=== PATIENT | male | born 1965 | race Caucasian/White ===

== ENCOUNTER 2016-09-21 01:10 | Emergency (ER) | payer SELFPAY ==
[~2016-09-21] VITALS: Ht 177.8 cm; Wt 74.8 kg
[2016-09-21 01:17] VITALS: BP 132/74
--- NOTE | 2016-09-21 01:58 | NUR ---
AMBULATED TO ER OF2
[2016-09-21] MEDS ORDERED: oxyCODONE/APAP 5/325 MG 1 TAB TAB PO ONE (02:45)
--- NOTE | 2016-09-21 02:45 | NUR ---
Patient being evaluated by DR. RUBIO at bedside.
--- NOTE | 2016-09-21 03:15 | NUR ---
Patient discharged with v/s stable. Written and verbal after care instructions given and explained. Patient alert, oriented and verbalized understanding of instructions. Ambulatory with steady gait. All questions addressed prior to discharge. ID band removed. Patient advised to follow up with PMD. Rx of MOTRIN 800 MG, NORCO 10/325 MG given. Patient educated on indication of medication including possible reaction and side effects. Opportunity to ask questions provided and answered.
[2016-09-21 03:20] VITALS: BP 122/70
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
== END 2016-09-21 03:15 | disposition home or self-care (01) ==
LOC: MED 01:10
DX: S62.396D Other fracture of fifth metacarpal bone, right hand, subsequent encounter for fracture with routine healing (principal); F17.210 Nicotine dependence, cigarettes, uncomplicated; Z88.5 Allergy status to narcotic agent; W19.XXXD Unspecified fall, subsequent encounter
CPT/HCPCS: 73130; 99284

== ENCOUNTER 2016-10-05 13:05 | Emergency (ER) | payer MEDICAID, OTHER ==
[~2016-10-05] VITALS: Ht 177.8 cm; Wt 72.8 kg
[2016-10-05 13:24] VITALS: BP 107/71
--- NOTE | 2016-10-05 13:43 | NUR ---
PATIENT AMBULATED TO BED 4
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
--- NOTE | 2016-10-05 13:52 | NUR ---
NOEMI CLARK AT BEDSIDE.
[2016-10-05] MEDS ORDERED: HYDROcodone/APAP 5/325 MG 1 TAB TAB PO ONE (14:00)
[2016-10-05] MEDS ORDERED: KETOROLAC 30 MG/ML VIAL IM ONE (14:00)
--- NOTE | 2016-10-05 14:04 | NUR ---
XRAY AT BEDSIDE.
[2016-10-05 14:38] VITALS: BP 125/80
--- NOTE | 2016-10-05 14:38 | NUR ---
Patient discharged with v/s stable. Written and verbal after care instructions given and explained. Patient alert, oriented and verbalized understanding of instructions. Ambulatory with steady gait. All questions addressed prior to discharge. ID band removed. Patient advised to follow up with PMD. Rx of NAPROSYN, KEFLEX AND NORCO given. Patient educated on indication of medication including possible reaction and side effects. Opportunity to ask questions provided and answered.
== END 2016-10-05 14:38 | disposition home or self-care (01) ==
LOC: MED 13:05
DX: S62.396A Other fracture of fifth metacarpal bone, right hand, initial encounter for closed fracture (principal); M79.671 Pain in right foot; L03.115 Cellulitis of right lower limb; F17.210 Nicotine dependence, cigarettes, uncomplicated; X58.XXXA Exposure to other specified factors, initial encounter; Y93.89 Activity, other specified; Y92.89 Other specified places as the place of occurrence of the external cause; Y99.8 Other external cause status
CPT/HCPCS: 29125; 73120; 73630; 96372; 99284; J1885; Q0092

== ENCOUNTER 2016-10-22 03:25 | Emergency (ER) | payer MEDICAID ==
[~2016-10-22] VITALS: Ht 177.8 cm; Wt 74.8 kg
[2016-10-22 03:45] VITALS: BP 123/60
--- NOTE | 2016-10-22 03:55 | NUR ---
Patient to bed 08.
--- NOTE | 2016-10-22 04:20 | NUR ---
AT BEDSIDE EVALUATING PT.
--- NOTE | 2016-10-22 04:27 | NUR ---
NEW SPLINT APPLIED TO THE RIGHT HAND/FOREARM.
[2016-10-22 05:01] VITALS: BP 117/61
--- NOTE | 2016-10-22 05:01 | NUR ---
Patient discharged with v/s stable. Written and verbal after care instructions given and explained. Patient verbalized understanding. Ambulatory with steady gait. All questions addressed prior to discharge. Advised to follow up with PMD.
== END 2016-10-22 05:01 | disposition home or self-care (01) ==
LOC: MED 03:25
DX: S62.396A Other fracture of fifth metacarpal bone, right hand, initial encounter for closed fracture (principal); R03.0 Elevated blood-pressure reading, without diagnosis of hypertension; Z88.8 Allergy status to other drugs, medicaments and biological substances; W22.8XXA Striking against or struck by other objects, initial encounter; Y93.89 Activity, other specified; Y92.89 Other specified places as the place of occurrence of the external cause; Y99.8 Other external cause status
CPT/HCPCS: 99283

== ENCOUNTER 2017-02-19 11:44 | Emergency (ER) | payer SELFPAY ==
[~2017-02-19] VITALS: Ht 177.8 cm; Wt 73.9 kg
[2017-02-19 11:46] VITALS: BP 138/87
--- NOTE | 2017-02-19 11:52 | NUR ---
PT TRIAGED. WAITING FOR ER BED. ERMD NOTIFIED OF PATIENT STATUS.
--- NOTE | 2017-02-19 12:07 | NUR ---
BODYACHES, F/C, CONGESTION PATIENT PRESENTS TO ED WITH DRY COUGH 2 WKS AND STABBING PAIN TO LEFT EAR X YESTERDAY---NO EXUDATE OR INJURY PER PT . PT STATES . DENIES N/V/D; SKIN IS PINK/WARM/DRY; AAOX4 WITH EVEN AND STEADY GAIT; LUNGS CLEAR BL; HR EVEN AND REGULAR; PATIENT STATES PAIN OF 9/10 AT THIS TIME; VSS; PATIENT POSITIONED FOR COMFORT; HOB ELEVATED; BEDRAILS UP X2; BED DOWN. ER MD MADE AWARE OF PT STATUS.
[2017-02-19 12:59] VITALS: BP 138/87
--- NOTE | 2017-02-19 12:59 | NUR ---
Patient discharged with v/s stable. Written and verbal after care instructions given and explained. Patient alert, oriented and verbalized understanding of instructions. Ambulatory with to car. All questions addressed prior to discharge. ID band removed. Patient advised to follow up with PMD. Rx of PHENERGAN DM/ Z PACK given. Patient educated on indication of medication including possible reaction and side effects. Opportunity to ask questions provided and answered.
[2017-02-19] MEDS ORDERED: KETOROLAC 60 MG/2 ML VIAL IM ONE (13:05)
== END 2017-02-19 12:59 | disposition home or self-care (01) ==
LOC: MED 11:44
DX: J02.9 Acute pharyngitis, unspecified (principal); Z88.8 Allergy status to other drugs, medicaments and biological substances
CPT/HCPCS: 96372; 99283; J1885

== ENCOUNTER 2017-06-01 02:40 | Emergency (ER) | payer MEDICAID, OTHER ==
[~2017-06-01] VITALS: Ht 177.8 cm; Wt 68.0 kg
[2017-06-01 02:51] VITALS: BP 109/72
[2017-06-01 02:55] VITALS: BP 109/72
--- NOTE | 2017-06-01 02:55 | NUR ---
PT TAKEN TO CHAIR B
--- NOTE | 2017-06-01 02:59 | NUR ---
Pt presents to ED with c/o left ear pain 09/07 x1 wk. Pt states no dizzines but has decrease in hearing and feels pressure in left hear. Pt states no n/v. VSS. ER MD at chairside evaluating. Continue to monitor.
--- NOTE | 2017-06-01 02:59 | NUR ---
Dr. Sawyer evaluating patient.
--- NOTE | 2017-06-01 03:19 | NUR ---
Siva pruitt in [facility] - 06/01/17 at 0326 by MELLY PT MOVED TO BED 10
[2017-06-01] MEDS ORDERED: IBUPROFEN 800 MG TAB PO ONE (03:25)
[2017-06-01 03:44] LABS: APPEARANCE,URINE CLEAR (CLEAR); BILIRUBIN,URINE NEGATIVE (NEGATIVE); BLOOD, URINE NEGATIVE (NEGATIVE); COLOR,URINE YELLOW (YELLOW); LEUKOCYTE ESTERASE ,URINE NEGATIVE (NEGATIVE); NITRITE, URINE NEGATIVE (NEGATIVE); UGLUCOSE NEGATIVE (NEGATIVE)
--- NOTE | 2017-06-01 04:38 | NUR ---
PT TAKEN TO BED 2
[2017-06-01] MEDS ORDERED: cefTRIAXone 250 MG in LIDOCAINE MPF 1% - **ER/OR** 0.9 ML IM ONE (04:45)
[2017-06-01] MEDS ORDERED: AZITHROMYCIN 250 MG TAB PO ONE (04:45)
--- NOTE | 2017-06-01 04:55 | NUR ---
PT RETURN TO CHAIR B
--- NOTE | 2017-06-01 05:46 | NUR ---
Patient discharged with v/s stable. Written and verbal after care instructions given and explained. Patient verbalized understanding. Ambulatory with steady gait. All questions addressed prior to discharge. Advised to follow up with PMD. Rx of Cilrpfloxacin, [place], Nystatin, and Augmenting given.
[2017-06-03 06:16] LABS: CHLAMYDIA TRACHOMATIS AMP DNA Negative (Negative)
== END 2017-06-01 05:46 | disposition home or self-care (01) ==
LOC: MED 02:40
DX: H60.92 Unspecified otitis externa, left ear (principal); H66.92 Otitis media, unspecified, left ear; B35.3 Tinea pedis; Z88.8 Allergy status to other drugs, medicaments and biological substances
CPT/HCPCS: 36415; 81003; 87491; 96372; 99284; J0696; J2001